=== PATIENT | male | born 1950 | race Caucasian/White ===

== ENCOUNTER 2016-11-15 01:48 | Observation (INO) ==
[2016-11-15] MEDS ORDERED: Aspirin 81 MG TAB.CHEW PO ONE (02:05)
--- NOTE | 2016-11-15 02:21 | Emergency Department Note ---
Disposition Clinical Impression: Chest pain Qualifiers: Chest pain type: unspecified Qualified Code(s): R07.9 - Chest pain, unspecified Disposition: Admitted As Inpatient Condition: Fair Referrals: NO,PCP [Primary Care Provider] - Forms: ED Satisfaction Letter Time of Disposition: 03:20 Chest Pain HPI - General Chief Complaint: ED Chest Pain Stated Complaint: chest pain/ n/v Time Seen by Provider: 11/15/16 02:10 Source: patient Limitations: no limitations Vital Signs Reviewed: Yes Nursing Notes Reviewed: Yes - History of Present Illness HPI Narrative: Patient is a 66-year-old male who presents to [facility] ED with a chief complaint of chest pain. States his symptoms started around 8 PM in the evening when he was sitting down. States it feels like pain in the substernal region. Has had nausea with vomiting, diaphoresis. Past medical history significant for an UT in 2011 in which one stent was placed and showed a 99% lesion which could not be stented due to hypotension at that time and then wanted to have definitive treatment later. However this has never been done. Patient states he has been off his cardiac medications for the last 2 months because he felt like he did not need them anymore. Patient recently started on 2 L of oxygen at home. Pt complaint: chest pain Onset (ago): hour(s) Time: 20:00 Duration: constant Onset: during rest Pain Location: substernal Severity: moderate Severity scale (1-10): 8 Quality: aching Pain Radiation: none Improves with: nothing Worsens with: nothing Associated symptoms: Reports: nausea, vomiting, diaphoresis Treatments prior to arrival chest pain: none - Related Data Allergies Allergy/AdvReac Type Severity Reaction Status Date / Time No Known Allergies Allergy Verified 03/27/16 00:53 All systems ED: reviewed and negative except as stated. Chest Pain PMH - Past Medical History Medical history: Reports: hyperlipidemia, hypertension, myocardial infarction Psychiatric history: Reports: no psych history - Social History Smoking Status: Current every day smoker Alcohol use: Reports: none Drug use: Reports: none Physical Exam - General Limitations: no limitations General appearance: alert, in no apparent distress - Head Head exam: atraumatic, normocephalic, normal inspection - Eye Eye exam: Present: normal appearance, PERRL, EOMI - ENT ENT exam: normal exam, normal oropharynx, mucous membranes moist - Neck Neck exam: Present: normal inspection, full ROM, trachea midline - Chest Chest inspection: Present: normal inspection, symmetric chest wall rise - Respiratory Respiratory exam: Present: normal lung sounds bilaterally - Cardiovascular Cardiovascular exam: Present: regular rate, normal rhythm, normal heart sounds - Abdominal Exam Abdominal exam: Present: soft, Non-Tender. Absent: tenderness, distention, guarding, rebound, rigidity - Extremities Exam Extremities exam: Present: normal inspection, full ROM. Absent: tenderness, pedal edema - Back Exam Back exam: Present: normal inspection, full ROM. Absent: tenderness - Neurological Exam Neurological exam: Present: alert, oriented X3 - Psychiatric Psychiatric exam: Present: normal affect, normal mood - Skin Skin exam: Present: warm, dry, intact, normal color Course Course Narrative: Patient seen and examined. Chest pain since 8 PM with nausea vomiting and diaphoresis. Cardiac history and noncompliant with medications. Patient was previously seen here in the emergency department and left AMA because he got scared and did not want to be admitted at that time. Cardiopulmonary workup initiated. Initial EKG had questionable ST elevation in the inferior leads. Repeat EKG did not show this. We will do a nitroglycerin trial to see if this helps with his pain. - Reevaluation(s) Reevaluation #1: Nitroglycerin significantly improved his pain from a 5 to a 2. Upon rechecking with the patient, patient is now chest pain-free. Labwork appears unremarkable. Troponin 0.00. I spoke with patient and family members about admission. I believe he needs to get back on his maintenance medications and will likely need another heart catheter in the future to address his other lesion. I spoke with hospitalist Dr. Ricketts who has accepted patient for admission. Time: 03:16 Vital Signs Temperature 98.2 F 11/15/16 01:51 Pulse Rate 84 11/15/16 01:51 Respiratory Rate 18 11/15/16 01:51 Blood Pressure 152/89 11/15/16 01:51 O2 Sat by Pulse Oximetry 100 11/15/16 01:51 Temperature 98.2 F 11/15/16 01:51 Pulse Rate 66 11/15/16 03:35 Respiratory Rate 20 11/15/16 03:35 Blood Pressure 112/72 11/15/16 03:35 O2 Sat by Pulse Oximetry 96 11/15/16 03:35 Oxygen Delivery Oxygen Delivery Nasal Cannula Chest Pain - Medical Records Medical records reviewed: Yes I reviewed the patient's medical records. - Lab Data Lab results reviewed: Yes I reviewed the patient's lab results. Result diagrams: 11/15/16 02:16 11/15/16 02:16 Lab Results 11/15/16 11/15/16 11/15/16 Range/Units 02:16 02:16 02:16 WBC 10.3 (4.3-11.1) K/mcL RBC 4.98 (4.19-5.50) M/mcL Hgb 14.9 (12.9-16.9) g/dL Hct 44.4 (37.5-50.1) % MCV 89.2 (83.0-100.0) fL MCH 29.9 (28.0-33.3) pg MCHC 33.6 (31.6-35.5) g/dL RDW 13.9 (11.5-14.5) % Plt Count 245 (140-400) K/mcL MPV 8.8 L (9.4-12.4) fL Immature Gran % 0.5 (0-4) % Seg Neutrophils % 64.1 % Lymphocytes % 22.5 % Monocytes % 8.5 % Eosinophils % 3.9 % Basophils % 0.5 % Neutrophils # 6.6 (1.6-8.9) K/mcL Lymphocytes # 2.3 (0.6-4.6) K/mcL Monocytes # 0.9 (0.0-1.3) K/mcL Eosinophils # 0.4 (0.0-0.6) K/mcL Basophils # 0.1 (0.0-0.2) K/mcL PT 11.0 (9.4-12.1) Seconds INR 1.0 APTT 30.5 (26.0-36.0) Seconds Sodium 141 (136-145) mEq/L Potassium 3.9 (3.5-4.5) mEq/L Chloride 107 (98-109) mEq/L Carbon Dioxide 29 (19-29) mEq/L BUN 8 (8-26) mg/dL Creatinine 0.91 (0.72-1.25) mg/dL Est GFR ( Amer) > 60 (> 60) Est GFR (Non-Af Amer) > 60 (> 60) BUN/Creatinine Ratio 9 (6-26) Glucose 94 (70-99) mg/dL Calculated Osmolality 290 (280-300) Calcium 8.9 (8.6-10.8) mg/dL Troponin I (0-0.03) ng/mL 11/15/16 Range/Units 02:16 WBC (4.3-11.1) K/mcL RBC (4.19-5.50) M/mcL Hgb (12.9-16.9) g/dL Hct (37.5-50.1) % MCV (83.0-100.0) fL MCH (28.0-33.3) pg MCHC (31.6-35.5) g/dL RDW (11.5-14.5) % Plt Count (140-400) K/mcL MPV (9.4-12.4) fL Immature Gran % (0-4) % Seg Neutrophils % % Lymphocytes % % Monocytes % % Eosinophils % % Basophils % % Neutrophils # (1.6-8.9) K/mcL Lymphocytes # (0.6-4.6) K/mcL Monocytes # (0.0-1.3) K/mcL Eosinophils # (0.0-0.6) K/mcL Basophils # (0.0-0.2) K/mcL PT (9.4-12.1) Seconds INR APTT (26.0-36.0) Seconds Sodium (136-145) mEq/L Potassium (3.5-4.5) mEq/L Chloride (98-109) mEq/L Carbon Dioxide (19-29) mEq/L BUN (8-26) mg/dL Creatinine (0.72-1.25) mg/dL Est GFR ( Amer) (> 60) Est GFR (Non-Af Amer) (> 60) BUN/Creatinine Ratio (6-26) Glucose (70-99) mg/dL Calculated Osmolality (280-300) Calcium (8.6-10.8) mg/dL Troponin I 0.00 (0-0.03) ng/mL - Radiology Data Radiology results reviewed: Yes I reviewed the patient's radiology results. Chest X-Ray 11/15/16 02:05 IMPRESSION: Left basilar atelectasis or, less likely, pneumonia. D/ / Ector Chacon MD / Ector Chacon MD Interpreting Provider: Ector Chacon MD - EKG Data EKG attestation: Yes I reviewed and interpreted this EKG. EKG results narrative: EKG done at 202 shows normal sinus rhythm with a rate of [address] depression. There does appear to be possible ST elevation in lead III and aVF. We will repeat an EKG. Q waves in leads II, III, aVF. Normal axis. EKG done at 220 shows normal sinus rhythm with a rate of [address] elevation or depression. Normal axis. Q waves in leads II, III, aVF. Heart Score - Score History: Moderately Suspicious EKG: Non Specific repolarisation Disturbance Age: 45-65 Risk Factors: Equal/Greater than 3 risk factor or history of atherosclerotic disease Troponin: Less than normal limit HEART Score Total: 5 Attestation Statement - Attestation Attestation: I personally interviewed and examined this patient and my medical decision- making was reviewed with the ED Resident Physician, Dr. Martini. I agree with the documented findings, disposition and treatment plan as described in the documentation Patient is a 66-year-old white male with a history of prior UT involving stent placement who presents to the emergency department today with intermittent substernal nonradiating chest pain since 6 PM. Patient states when the pain began it was at rest, it was associated with some shortness of breath diaphoresis, nausea and one episode of vomiting. Patient denies any abdominal pain or flank pain, no bowel changes, no fevers or chills, no other associated symptoms. Patient was here and evaluated for chest pain recently but left AGAINST MEDICAL ADVICE as at that time he did not want to be admitted. 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 Patient's EKG shows no acute findings and no significant change from prior EKGs. Patient was given aspirin and nitroglycerin with resultant relief of his chest pain. Patient's with negative chest x-ray, negative troponin. Will admit patient for further cardiac evaluation.
[2016-11-15 02:23] LABS: Basophils # 0.1 K/mcL (0.0-0.2); Basophils % 0.5 %; Eosinophils # 0.4 K/mcL (0.0-0.6); Eosinophils % 3.9 %; Hematocrit 44.4 % (37.5-50.1); Hemoglobin 14.9 g/dL (12.9-16.9); Immature Granulocytes % 0.5 % (0-4); Lymphocytes # 2.3 K/mcL (0.6-4.6); Lymphocytes % 22.5 %; Mean Corpuscular HGB Conc 33.6 g/dL (31.6-35.5); Mean Corpuscular Hemoglobin 29.9 pg (28.0-33.3); Mean Corpuscular Volume 89.2 fL (83.0-100.0); Mean Platelet Volume 8.8 fL (9.4-12.4); Monocytes # 0.9 K/mcL (0.0-1.3); Monocytes % 8.5 %; Neutrophils # 6.6 K/mcL (1.6-8.9); Platelet Count 245 K/mcL (140-400); Red Blood Count 4.98 M/mcL (4.19-5.50); Red Cell Distribution Width 13.9 % (11.5-14.5); Segmented Neutrophils % 64.1 %
[2016-11-15] MEDS ORDERED: Nitroglycerin 0.4 MG TAB.SUBL SL PRN (02:24)
[2016-11-15 02:30] LABS: Activated Partial Thrombo Time 30.5 Seconds (26.0-36.0)
[2016-11-15 02:36] LABS: BUN/Creatinine Ratio 9 (6-26); Blood Urea Nitrogen 8 mg/dL (8-26); Calcium 8.9 mg/dL (8.6-10.8); Carbon Dioxide 29 mEq/L (19-29); Chloride 107 mEq/L (98-109); Glucose 94 mg/dL (70-99); Osmolality,Calculated 290 (280-300); Potassium 3.9 mEq/L (3.5-4.5); Sodium 141 mEq/L (136-145); eGFR For African Americans > 60 (> 60); eGFR For Non-African Americans > 60 (> 60)
[2016-11-15] MEDS ORDERED: *HR* OxyCODONE Immed Rel 5 MG TABLET PO PRN (04:37)
[2016-11-15] MEDS ORDERED: Acetaminophen 325 MG TABLET PO PRN (04:37)
[2016-11-15] MEDS ORDERED: Naloxone 0.4 MG/ML INJ IVP PRN (04:37)
[2016-11-15] MEDS ORDERED: Ondansetron ODT 4 MG TAB.RAPDIS SL PRN (04:37)
[2016-11-15] MEDS ORDERED: Ipratropium/Albuterol Neb 3 ML IH PRN (04:52)
--- NOTE | 2016-11-15 04:52 | Internal Med History&Physical ---
<Ramya Gates - Last Filed: 11/15/16 05:01> Date of Encounter: 11/15/16 Time of Encounter: 04:41 Assessment and Plan (1) Chest pain Current visit: Yes Status: Acute Patient presented with substernal sharp, stabbing chest pain that resolves with nitroglycerin. Patient has had a previous AK with one stent placed. He reports that he has another coronary artery that is 99% blocked but they were unable to stent it due to his blood pressure decreasing during the procedure. Currently, EKG shows no signs of acute ischemia. Initial troponin was 0.00. Will repeat troponin at 6 AM. If troponin remains negative, patient will require a stress test. If troponin increases patient will consult cardiology for evaluation for left heart. 1. Cardiac monitoring 2. Trend troponin 3. ECHO 4. Patient may require either a stress test or evaluation by cardiology 5. NPO now in case of stress test 6. Nitro prn for chest pain Qualifiers: Chest pain type: unspecified Qualified Code(s): R07.9 - Chest pain, unspecified (2) COPD (chronic obstructive pulmonary disease) Current visit: Yes Status: Acute Patient history of CFE take. He reports that he has subliminal oxygen at home that he is not been using. Will revised supplemental oxygen as needed. Breathing treatments every 6 hours as needed. 1. Continuous O2 monitoring and supplemental oxygen as needed. 2. Duoneb breathing treatments as needed every 6 hours Qualifiers: COPD type: unspecified COPD Qualified Code(s): J44.9 - Chronic obstructive pulmonary disease, unspecified (3) HTN (hypertension) Current visit: Yes Status: Acute Patient reports history of high blood pressure. Patient has not been taking any medications at home for the last 2 months. Will monitor blood pressure and treat as needed. Qualifiers: Hypertension type: essential hypertension Qualified Code(s): I10 - Essential (primary) hypertension (4) Tobacco abuse Current visit: Yes Status: Acute Patient smokes at least 2 packs a day. Discussed with patient that risks of heart attack or greatly increase was smoking. Patient reports that he is planning to quit. Will provide nicotine patches needed. (5) DVT prophylaxis Current visit: Yes Status: Acute Heparin for DVT prophylaxis. Internal Medicine - H&P: HPI Chief complaint: Chest pain Admitted From: Emergency Dept Plans for Post Hospital Care: Home History of present illness: Mr. Bales is a 66 year old male with past medical history including hypertension, hyperlipidemia, COPD with oxygen at home as needed, CAD, and current tobacco use. Patient presented to the emergency department this evening with chest pain. Patient reports that around 7 PM in the evening he was sitting on his couch and he had sudden onset of substernal sharp stabbing chest pain. Pain did not radiate up to his neck or down his arms. Pain was associated with nausea and vomiting, diaphoresis, and a headache. Patient states that the pain did not get any better so around 2 AM he came to the emergency permit. In the emergency department pain was relieved with nitroglycerin. Patient reports that he had nitroglycerin at home however he did not take any for the pain. Patient reports a previous heart attack in 2001. Patient had a left heart cath at [facility] where one stent was placed. Patient reports that he had another coronary artery that was 99% blocked however they were unable to place a stent because his blood pressure decreased during the procedure. Patient reports that the pain with that heart attack was more of a pressure instead of the sharp shooting pain he had today. Patient does report that he has had pain like this occasionally, mostly with exertion. He reports that he is not following with a diet consultant currently as the [place] does not have one. He also reports that approximately 2 months ago he felt that he was doing much better so he stopped taking all of his medications including his prescribed aspirin and Plavix. Patient reports that he has had an echo and a stress test in the past however they were a long time ago. In the ED, patient was afebrile and vital signs within normal limits. Oxygenation saturation did decreased 91% and he is requiring 2 L of oxygen at this time. Labs were largely within normal limits. Troponin 0.00. Chest x- ray showed left basilar atelectasis. EKG showed normal sinus rhythm with no ST segment elevation or two-way conversions. On exam, patient is awake and alert, no acute distress. Patient reports that this time he is having no chest pain. He reports he has no complaints at all at this time. Heart is regular rate and rhythm. Lungs clear to auscultation bilaterally. I have been soft nontender. No pedal edema. Past Med Surg Social Fam HX - Past Medical History Medical history: hyperlipidemia, hypertension, myocardial infarction Psychiatric history: no psych history - Social History Smoking Status: Current every day smoker Smokeless Tobacco Status: No Alcohol use: none Drug use: none Internal Medicine - H&P: Meds No Known Home Drugs 11/15/16 [History] Allergies No Known Allergies Allergy (Verified 03/27/16 00:53) All Systems PM: A 10-system review of systems was performed and is negative for pertinent findings except as documented above in the HPI. - Constitutional Constitutional: excessive sweating, no chills, no fever(s), no weight loss - EENT Eyes: no blurry vision, no change in vision - Cardiovascular Cardiovascular ROS IM: chest pain, diaphoresis, no dyspnea, no dyspnea on exertion, no edema, no irregular heart rhythm, no lightheadedness, no palpitations - Respiratory Respiratory: no cough, no dyspnea, no dyspnea on exertion, no wheezing, no chest congestion - Gastrointestinal Gastrointestinal: nausea, vomiting, no abdominal pain, no constipation, no diarrhea - Genitourinary Genitourinary ROS male: no difficulty urinating, no dysuria - Neurological Neurological ROS: headache(s), no confusion, no dizziness - Constitutional Vitals: Temp Pulse Resp BP Pulse Ox 98.2 F 66 0 0/0 96 11/15/16 01:51 11/15/16 03:35 11/15/16 03:44 11/15/16 03:44 11/15/16 03:35 General appearance: Present: A&O X 3, pleasant, no acute distress, answers questions appropriately - Head Head exam: Present: atraumatic, normal inspection, normocephalic - Eye Eye exam: Present: EOMI, normal appearance, PERRL - ENT ENT exam: Present: mucous membranes moist - Respiratory Respiratory exam: Present: CTAB. Absent: rhonchi, wheezes - Cardiovascular Cardiovascular exam: Present: RRR - GI/Abdominal GI/Abdominal exam: Present: soft. Absent: tenderness - Extremities Exam Extremities exam: Present: normal inspection. Absent: pedal edema - Neurological Exam Neurological exam: Present: alert, CN II-XII intact, oriented X3, no focal deficits Internal Med - H&P Results - Labs CBC & Chem 7: 11/15/16 02:16 11/15/16 02:16 <Kris Ricketts R - Last Filed: 11/15/16 05:37> Assessment and Plan (1) Chronic respiratory failure Current visit: Yes Status: Acute Continue home oxygen Qualifiers: Respiratory failure complication: hypoxia Qualified Code(s): J96.11 - Chronic respiratory failure with hypoxia Internal Medicine - H&P: [facility] History of present illness: Mr. Bales is a 66 year old male All Systems PM: A 10-system review of systems was performed and is negative for pertinent findings except as documented above in the HPI. - Constitutional Vitals: Temp Pulse Resp BP Pulse Ox 97.4 F L 69 16 110/71 93 L 11/15/16 04:54 11/15/16 04:54 11/15/16 04:54 11/15/16 04:54 11/15/16 04:54 Internal Med - H&P Results - Labs CBC & Chem 7: 11/15/16 02:16 11/15/16 02:16 - Attending Attestation I performed a history and physical examination of the patient and discussed his management with the Resident/Dialysis Equipment Technician (Dr Gates). I reviewed the residents note and agree with the documented findings and plan of care, with additions as below. 66 Y/M with history of COPD, CAD/AK in 2012 - status post stent placement (?RCA) . He continues to smoke. He presents with sharp central chest pain (which is different from the pain at that time of AK, which was a feeling of heaviness/ infant sitting on his chest). Chest pain relieved after nitroglycerin in the emergency department. No chest pain at the time of my evaluation. O/E: Cardiac regular rate and rhythm. Lungs clear to auscultation. EKG shows sinus rhythm with Q waves in the inferior leads. CXR reported left basilar atelectasis. Initial troponin was negative. A/P: Chest pain: Patient has multiple risk factors. Cardiac monitoring. Trend troponins. If the Troponins are negative, will obtain stress test. If the troponins are positive, will consult diet consultant.
[2016-11-15 04:55] VITALS: BP 110/71
[2016-11-15] MEDS ORDERED: *HR* Heparin 5,000 UNIT/ML VIAL SQ SCH (06:00)
[2016-11-15] MEDS ORDERED: Regadenoson 0.4 MG/5 ML SYRINGE IVP ONE (09:19)
--- NOTE | 2016-11-15 10:06 | Discharge Summary ---
Date of Encounter: 11/15/16 Time of Encounter: 09:00 - Discharge Diagnosis (1) Noncompliance Priority: Primary Status: Acute Comments: Patient stopped taking all of his medications approximately 2 months ago stating he felt better without his medications. He refused any type of diagnostic testing or treatment during this admission and left AMA. (2) Chest pain Priority: Primary Status: Resolved Comments: Patient denied chest pain at time of discharge. An echocardiogram and a stress test were both ordered however the patient refused stating he was going home. He left AMA. Qualifiers: Chest pain type: unspecified Qualified Code(s): R07.9 - Chest pain, unspecified (3) Chronic respiratory failure Priority: Secondary Status: Chronic Comments: Patient was on room air at time of discharge Qualifiers: Respiratory failure complication: hypoxia Qualified Code(s): J96.11 - Chronic respiratory failure with hypoxia (4) COPD (chronic obstructive pulmonary disease) Priority: Secondary Status: Chronic Comments: She denies shortness of breath above his normal discharge (5) DVT prophylaxis Priority: Primary Status: Acute Comments: Subcutaneous heparin (6) HTN (hypertension) Priority: Secondary Status: Chronic Comments: Patient stopped taking all of his medications approximately 2 months ago. He was normotensive on day of discharge without antihypertensive medications. Recommend follow-up with the [facility] Qualifiers: Hypertension type: essential hypertension Qualified Code(s): I10 - Essential (primary) hypertension (7) Tobacco abuse Priority: Secondary Status: Chronic Comments: Continues to smoke at least 2 packs per day, declined counseling - Discharge Medications Home Medications: No Known Home Drugs 11/15/16 [History] Allergies/Adverse Reactions: Allergies No Known Allergies Allergy (Verified 03/27/16 00:53) Procedures/tests Complete & Pending: Procedures Performed prior 72 hours Category Date Time Status NM umberto perf SPECT multi [NM] Routine Exams 11/15/16 08:59 Ordered EV echocardiogram Routine Y 11/15/16 04:39 Ordered SP pharm nuclear stress Routine Y 11/15/16 08:59 Ordered Date of admission: 11/15/16 03:56 Primary care physician: PCP NO Discharging clinician: Tara Strong Anticipated date of discharge: 11/15/16 (leaving AMA and refusing testing) - Patient Status Disposition: Left Against Medical Advice Condition: Fair Functional capacity at discharge: independent ambulation Overall status at discharge: patient is progressing back to baseline - Discharge Instructions Follow Up With: [facility],PCP [Non-Partnered Physician] - Additional Instructions: Follow-up with your primary care provider within 2 days - Diet and Activity Activity: increase activity as tolerated Diet: low fat, low cholesterol, low salt diet Hospital course: Mr. Bales is a 66 year old male with past medical history of hypertension, hyperlipidemia, COPD with oxygen at home as needed, CAD status post stent, heavy tobacco abuse of at least 2 packs of cigarettes per day. Patient presented to the emergency department chief complaint chest pain that started while he was sitting on his couch and was substernally located, sharp, and stabbing. No radiation of the pain. Associated symptoms include nausea and vomiting, diaphoresis and a headache. This started at 7 PM and when it did not improve around 2 AM, patient presented to the emergency department. In the emergency department, his pain was relieved with nitroglycerin. Workup in the emergency department unremarkable. Chest x-ray with left lower lobe atelectasis. Patient was admitted to the hospitalist service for further evaluation and management. Troponins negative 2. Patient arrived at the emergency department around 2:00 this morning and was admitted around 4:00 this morning. When I saw him at 7:00 this morning, patient had taken off his telemetry and had changed back into his regular clothes and stated he was leaving. He stated he would not get a stress test, not get an echocardiogram, and would not stick around to see a overnight associate. He states that he no longer has chest pain and states that he will follow-up at the [place]. Offered to get him a month's worth of his medications prior to leaving however he states he has medications at home stating he felt all of his pills 2 weeks ago but states he still does not want to take any of his medications. Risks versus benefits of him choosing to leave without treatment were discussed and the patient stated he still wanted to leave AMA. ITS Impressions Chest X-Ray 11/15/16 02:05 IMPRESSION: Left basilar atelectasis or, less likely, pneumonia. D/ / Ector Chacon MD / Ector Chacon MD Interpreting Provider: Ector Chacon MD - Time Spent with Patient Total time spent providing and/or coordinating discharge services: - Constitutional Vitals: Temp Pulse Resp BP Pulse Ox 97.4 F L 69 16 110/71 93 L 11/15/16 04:54 11/15/16 04:54 11/15/16 04:54 11/15/16 04:54 11/15/16 08:06 General appearance: Present: A&O X 3, no acute distress, answers questions appropriately. Absent: cooperative, pleasant - Head Head exam: Present: atraumatic, normocephalic - Eye Eye exam: Present: PERRL, conjuntiva pink, sclera anicteric Pupils: Present: PERRL - Neck Neck exam general surgery: Present: supple, trachea midline. Absent: lymphadenopathy - Respiratory Respiratory exam: Present: decreased breath sounds, prolonged expiratory phase, wheezes. Absent: accessory muscle use, rales, respiratory distress, rhonchi - Cardiovascular Cardiovascular exam: Present: RRR, +S1, +S2. Absent: diastolic murmur, gallop, rubs, systolic murmur - GI/Abdominal GI/Abdominal exam: Present: normal bowel sounds, soft, no peritoneal signs. Absent: distended, tenderness - Extremities Exam Extremities exam: Present: warm, radial pulses palpable and symetrical. Absent : calf tenderness, cyanotic, pedal edema - Neurological Exam Neurological exam: Present: alert, CN II-XII intact, normal gait, oriented X3, no focal deficits, strengths equal and symetr throughout. Absent: pronater drift, facial droop, speech deficit - Skin Skin exam: Present: dry, intact, normal color, warm
--- NOTE | 2016-11-15 12:16 | Electrocardiograph Report ---
[address] [place] [address] Test Date: 2016-11-15 Pat Name: Ranjeet Bales Department: 104 Room: 3B Gender: M Personnel Counselor: : 1950 Requested By: Ivonne Gama Order Number: [id number] Reading MD: Ran Shepard MD Measurements Intervals [place] Rate: 71 P: 67 NC: 159 QRS: 35 QRSD: 98 T: 68 QT: 397 QTc: 419 Interpretive Statements SINUS RHYTHM POSSIBLE INFERIOR MYOCARDIAL INFARCTION, OF INDETERMINATE AGE Electronically Signed On 11-15-2016 12:14:45 EST by Ran Shepard MD
--- NOTE | 2016-11-15 16:03 | Electrocardiograph Report ---
[place] [address] Test Date: 2016-11-15 Pat Name: Ranjeet Bales Department: 104 Room: 3B Gender: M Mail Inserter: : 1950 Requested By: Tara Strong Order Number: [id number] Reading MD: Ran Shepard MD Measurements Intervals [place] Rate: 68 P: 67 IN: 152 QRS: 34 QRSD: 105 T: 66 QT: 420 QTc: 437 Interpretive Statements SINUS RHYTHM PROBABLE INFERIOR MYOCARDIAL INFARCTION, PROBABLY OLD Electronically Signed On 11-15-2016 16:02:02 EST by Ran Shepard MD
[2016-11-16] MEDS ORDERED: Aspirin 81 MG TAB.CHEW PO SCH (09:00)
== END 2016-11-15 10:10 | disposition left against medical advice (07) ==
LOC: EMEROO 01:48 → 3BNU 01:48
PROVIDERS: ADMIT Nurse Practitioner Family; ATTEND Nurse Practitioner Family